=== PATIENT | female | born 1945 | race Caucasian/White ===

== ENCOUNTER → 2023-03-11 08:46 | Outpatient (CLI) | payer MEDICARE, OTHER, SELFPAY ==
[2023-03-11 11:03] LABS: Add Manual Diff / Slide Review NO; Basophils Absolute Auto 100 /uL (0-100); Eosinophils Absolute Auto 200 /uL (0-450); Eosinophils Percent Auto 3.6 % (2-4); Hematocrit 33.9 % (36-46); Hemoglobin 11.1 g/dL (12.0-16.0); Lymphocytes Absolute Auto 1400 /uL (1100-4500); Lymphocytes Percent Auto 21.5 % (25-40); Mean Corpuscular HGB Conc 32.7 % (30-36); Mean Corpuscular Hemoglobin 29.8 PG (26-34); Mean Corpuscular Volume 91.3 fL (80-100); Monocytes Absolute Auto 600 /uL (0-900); Monocytes Percent Auto 9.2 % (3-14); Neutrophils Absolute Auto 4200 /uL (1500-7000); Neutrophils Percent Auto 64.7 % (50-75); Platelet Count 338 X10^3/uL (150-400); Red Blood Cell Count 3.71 X10^6/uL (4.0-5.2); Red Cell Distribution Width 14.5 % (11.6-14.8); White Blood Cell Count 6.6 X10^3/uL (4.5-11.0)
[2023-03-11 11:11] LABS: INR 1.8 (0.9-1.3); Prothrombin Time 20.4 SECONDS (10.1-12.7)
[2023-03-11 11:13] LABS: PTT Partial Thromboplastin Tim 36 SECONDS (26-36)
[2023-03-11 11:20] LABS: Hemoglobin A1C% w Est Avg Glu 5.8 % (4.0-6.0)
[2023-03-11 11:24] LABS: BUN Creatinine Ratio 13.8 (6-22); Blood Urea Nitrogen 12 mg/dL (7-17); Calcium 10.1 mg/dL (8.4-10.2); Carbon Dioxide 25 mmol/L (22-32); Chloride 104 mmol/L (98-107); Estimated Glomerular Filt Rate > 60 mL/min (>60); Glucose 109 mg/dL (80-110); HEMOLYSIS < 15 (0-50); Sodium 140 mmol/L (137-145)
== END ==
PROVIDERS: Family Provider Family Medicine; PCP Family Medicine; Referring Provider Orthopaedic Surgery; Visit Provider Orthopaedic Surgery
DX: Z01.818 Encounter for other preprocedural examination (principal); Z51.81 Encounter for therapeutic drug level monitoring; R73.9 Hyperglycemia, unspecified; Z01.812 Encounter for preprocedural laboratory examination; N39.0 Urinary tract infection, site not specified
CPT/HCPCS: 36415; 80048; 83036; 85025; 85610; 85730; 93005; 93010

== ENCOUNTER 2023-08-17 08:36 | Day surgery (SDC) | payer MEDICARE, OTHER, SELFPAY ==
[2023-08-04 13:28] VITALS: BMI 36.8
[2023-08-16 16:02] VITALS: O2SAT 97
[2023-08-17] VITALS (16 sets, daily range): BP systolic 145–161; BP diastolic 63–93; PULSE 64–89; RESP 12–18; TEMP 35.7–37.2; O2SAT 92–99; BMI 36.8
--- NOTE | 2023-08-17 08:49 | DI.RAD.S_ITS ---
PROCEDURE: XR KNEE LT 1TO2V INDICATIONS: Left TKA TECHNIQUE: 2 view(s) of the knee acquired. COMPARISON: None. FINDINGS: Bones: Patient is status post knee joint arthroplasty. Hardware components are in expected positions. Visualized bony structures are intact. Soft tissues: Overlying postoperative changes are noted. IMPRESSION: Expected post-operative appearance of a knee arthroplasty. Dictated by: Magalie Gallardo MD, PhD on 08/17/2023 at 14:11 Approved by: Magalie Gallardo MD, PhD on 08/17/2023 at 14:11
[2023-08-17] MEDS: ACETAMINOPHEN 325 MG TABLET 975 MG PO (09:13)
[2023-08-17] MEDS: LACTATED RINGERS 1,000 ML 42 ML IV ×2 (09:53→12:24)
--- NOTE | 2023-08-17 09:56 | PM.PREOP ---
Pre-operative Note Interval Note History & Physical reviewed/Exam performed by Physician: Yes Changes to H&P: No
--- NOTE | 2023-08-17 09:57 | P.OP_ITS ---
Operative Date/Time/Diagnoses Date of procedure: 08/17/23 Time of procedure: 10:00 Pre-op diagnosis: Left knee OA Post-op diagnosis: same Procedure & Clinicians Procedure: Left total knee arthroplasty Same procedure as scheduled: Yes Indications: The patient has had progressively worsening left knee pain with radiographic changes consistent with arthritis. Non-operative management has failed and the patient has requested total knee replacement. The risks, benefits and alternatives to surgery were discussed with the patient prior to proceeding. Risks discussed included, but were not limited to, failure to relieve pain, stiffness, infection, nerve damage, deep venous thrombosis, pulmonary embolism, stroke, coma, heart attack, permanent paralysis and , as well as the potential need for eventual revision of the prosthetic. Surgeon: Tracy Flynn Wildland Fire Fighter Specialist: Otilio Dubose Anesthesia Type: General and Peripheral nerve block Operative Notes Findings: Severe left knee OA, adequate stability Closure Type: primary Specimen(s): none sent Prosthetic devices, grafts, tissues, transplants, or devices: [employer] [facility] BCS 2 size 5 femur, size 4 tibia, +9 poly, 35 x 7-1/2 mm patella Estimated Blood Loss (mL): 250 Blood products transfused: none Tourniquet time (min): 97 Procedure in detail: The patient was seen in the pre-operative area, where the patient identified the left knee as the operative site and this was marked with my initials. The patient received pre-operative antibiotics, and was taken to the operating room and placed on the operative table in the supine position. After satisfactory anesthesia, a heel cementer machine out was performed. The left leg was encircled with a tourniquet about the proximal thigh, and the leg was prepared from the toes to the tourniquet with ChloroPrep in the usual fashion and draped through sterile drapes. The leg was elevated and exsanguinated with Eschmark bandage and the tourniquet inflated to [250] mmHg pressure. A PA was used during the procedure and was essential for intraoperative retraction and safe implantation of the components. The knee was approached through an approximately 18 cm incision centered over the patella and carried into the knee through a medial parapatellar arthrotomy. Portion of the medial and lateral meniscus was resected. Soft tissue was carefully mobilized around the patella the patella was measured with a caliper. Bone was resected from the patella and the patellar height was reconstituted with up an appropriate sized patellar component. For a cover was then placed on the patella. A small amount of additional medial and lateral meniscus was resected. Cori pins were placed in the femur and the tibial guide was attached and pinned for navigation. The knee was meticulously mapped and placed through a range of motion and stressed and non stressed curves were taken. A plan was developed to optimize range of motion and stability and alignment. The robotic assisted bur was used to remove the distal femur for the distal femoral cut. It looked like an appropriate distal femoral cut and the cut was made without difficulty. The rotation was assessed and the appropriate size femoral guide was placed on the distal femur and finishing cuts were made. There was no evidence of notching. The anterior, posterior and chamfer cuts were then made. The posterior osteophytes and soft tissues were then removed. The posterior capsule was injected with part of a mixture of 60 ml 0.25% Marcaine mixed with 266 mg Exparel for post operative pain control. The remainder of this mixture was injected into the capsule and subcutaneous tissues during cement curing. The tibia guide was meticulously navigated in order to optimize the tibial cut. The proximal tibial cut was made. It appeared to be an adequate cut. The patient was placed in extension residual medial and lateral meniscus as well as any residual bone was carefully resected. [No] additional tibia was resected. Hemostasis was achieved especially posteriorly. Additional local was injected into the posterior capsule. The extension gap was assessed. The femoral component was trial was placed and the notch was finished. Trial tibial and femoral components were then placed and the knee placed through a range of motion. Range of motion was [0-130], with good stability throughout the range. The trials were then removed, and the tibia was finished. The bone was prepared with pulsatile lavage, and dried with a sponge. Cement was applied and the final prosthetics placed. Excess cement was removed during and after cement curing. A brief Betadine soak was performed. After confirming there was no extruded cement posteriorly, the final tibial insert was placed. The knee was copiously irrigated and the tourniquet deflated. Hemostasis was obtained with the Bovie cautery. The capsule was closed with interrupted # 1 suture. The subcutaneous layer was closed with barbed sutures, and the skin with a running 3-0 V-Lock suture and skin loreta. A caleb dressing was applied and the patient was taken to recovery having tolerated the procedure well. Complications: none Post-operative Condition: stable Disposition: Acute Care Plan for aftercare: The patient will be maintained on a standard total knee replacement protocol with weight bearing as tolerated. The patient will receive Coumadin and sequential compression devices for DVT prophylaxis. The patient will be discharged home when safe for the home environment.
[2023-08-17] MEDS: VANCOMYCIN 1,000 MG/200 ML PIGGYBACK 200 MG IV (10:06)
[2023-08-17] MEDS: CEFAZOLIN 2 GM/100 ML PREMIX 100 ML IV ×2 (10:53→18:43)
[2023-08-17] MEDS: TRANEXAMIC ACID 1,000 MG VIAL 2000 MG INJ ×2 (11:00→12:45)
--- NOTE | 2023-08-17 11:10 | SUR.OPER ---
Supine on padded OR bed. Pillow under head, arms secured on padded armboards <90 degree abduction. Safety belt across torso. Non-operative leg secured with tape over blanket over lower leg. Operative leg secured in positioner. Foam padded brace at thigh of operative leg.
[2023-08-17] MEDS: BUPIVACAINE 0.25% (PF) 60 ML, EPINEPHrine 0.3 MG INJ (11:46)
[2023-08-17] MEDS: BUPIVACAINE LIPOSOME 266 MG/20 ML VIAL INJ (11:47)
[2023-08-17] MEDS: ONDANSETRON 4 MG/2 ML INJ IV ×2 (14:19→20:17)
--- NOTE | 2023-08-17 14:49 | PC.NURSE ---
admit/post op pt to AC from PACU. VSS. Pt alert and oriented. HAYLIE dressing to L knee CDI with kaylan wrap. no transfer orders. This RN called to PACU; PATIENT EXPERIENCE COORDINATOR Capri seals will notify MD or BASE LOADER about the same as they are in another surgical case.
[2023-08-17] MEDS: WARFARIN 1 MG TABLET PO (18:42)
[2023-08-17] MEDS: TRAMADOL 50 MG TABLET PO (18:44)
[2023-08-17] MEDS: LACTATED RINGERS 1,000 ML 100 ML IV (20:49)
[2023-08-17] MEDS: DOCUSATE 100 MG CAPSULE PO (22:02)
[2023-08-17] MEDS: diphenhydrAMINE 25 MG TABLET PO (22:03)
[2023-08-17] MEDS: METOPROLOL IR 50 MG TABLET 75 MG PO (22:03)
[2023-08-18] VITALS: BP 149/60; PULSE 67; RESP 19; TEMP 35.8; O2SAT 97
[2023-08-18] MEDS: HYDROCODONE/ACET 5/325 TABLET 1 TAB PO ×3 (00:39→11:40)
[2023-08-18] MEDS: CEFAZOLIN 2 GM/100 ML PREMIX 100 ML IV (02:48)
[2023-08-18 04:00] VITALS: BP 142/68; PULSE 66; RESP 17; TEMP 36.1; O2SAT 96
[2023-08-18 05:33] LABS: Hematocrit 36.8 % (36-46); Hemoglobin 12.3 g/dL (12.0-16.0)
--- NOTE | 2023-08-18 07:06 | PM.DS.1 ---
History of Present Illness History of Present Illness Date Patient Seen: 08/18/23 Time Patient Seen: 07:06 Chief complaint: OPB Narrative: Operative Date/Time/Diagnoses Date of procedure: 08/17/23 Time of procedure: 10:00 Pre-op diagnosis: Left knee OA Post-op diagnosis: same Procedure & Clinicians Procedure: Left total knee arthroplasty Same procedure as scheduled: Yes Indications: The patient has had progressively worsening left knee pain with radiographic changes consistent with arthritis. Non-operative management has failed and the patient has requested total knee replacement. The risks, benefits and alternatives to surgery were discussed with the patient prior to proceeding. Risks discussed included, but were not limited to, failure to relieve pain, stiffness, infection, nerve damage, deep venous thrombosis, pulmonary embolism, stroke, coma, heart attack, permanent paralysis and , as well as the potential need for eventual revision of the prosthetic. Surgeon: Tracy Flynn Dye Colorist Formulator: Otilio Dubose Anesthesia Type: General and Peripheral nerve block Operative Notes Findings: Severe left knee OA, adequate stability Closure Type: primary Specimen(s): none sent Prosthetic devices, grafts, tissues, transplants, or devices: [employer] [facility] BCS 2 size 5 femur, size 4 tibia, +9 poly, 35 x 7-1/2 mm patella Estimated Blood Loss (mL): 250 Blood products transfused: none Tourniquet time (min): 97 Discharge Providers Provider Discharge Date: 08/18/23 Primary care physician: Purvi Yao MD Consults: 08/04/23 14:43 Consult to Anesthesiology Routine Comment: Consulting Provider: Anesthesiologist Reason for consultation: PAC courtesy re: Comorbidities, new dx of Pulm HTN 08/17/23 08:49 Consult to Anesthesiology Routine Comment: Consulting Provider: Anesthesiologist Reason for consultation: Regional block for post operative pain control 08/17/23 16:20 Consult to Discharge Planning Routine Comment: Consult to Occupational Therapy Evaluate & Treat Comment: Physician Instructions: Evaluate and treat Consult to Physical Therapy Evaluate & Treat Comment: Physician Instructions: postop TKA protocol Discharge provider: Dora Jimenes PA-C Summary Hospital Course Discharge Diagnosis: Left knee osteoarthritis, s/p left total knee arthroplasty Hospital Course: Ms Almonte's hospital course was unremarkable. On the morning of POD# 1, she was feeling well and wanted to go home if cleared by PT. She had been OOB to urinate without difficulty. She had not yet eaten but denied nausea. She is on warfarin for a fib, which was restarted last night. Pt states her PCP rxd a Lovenox bridge. Exam Vital Signs (past 8 hours): - 08/18/23 00:00 08/18/23 04:00 Temperature 96.5 F L 96.9 F L Pulse Rate 67 66 Respiratory Rate 19 17 Blood Pressure 149/60 H 142/68 H Pulse Oximetry 97 96 Oxygen Flow Rate 0 0 Oxygen Delivery Method Room Air Oxygen Flow Rate 0 Narrative Exam Narrative: 4/5 strength in hip flexors, quadriceps, hamstrings; 5/5 DF, PF, EHL on left. Sensation to light touch intact throughout LLE. Calf soft, compressible, nontender. HAYLIE dressing functioning; ZAYNAB CDI. Objective Labs 08/18/23 05:04 Labs: Laboratory Results - last 24 hr 08/18/23 05:04 Hgb 12.3 Hct 36.8 PFSH Medical History (Updated 08/04/23 @ 14:31 by Sallie Meier RN) History of COVID-19 (~2020) Anemia Easy bruisability Osteoarthritis Hx of ectopic (1970) Weight loss Diverticulitis GERD (gastroesophageal reflux disease) HTN (hypertension) HLD (hyperlipidemia) Atrial fibrillation Pulmonary hypertension SANTIAGO on CPAP Surgical History (Updated 08/18/23 @ 07:21 by Dora Jimenes PA-C) Hx of arthroscopy of right knee (2007) History of total right knee replacement (2012) Hx of tonsillectomy Hx of laminectomy (1982) Hx of cholecystectomy (1988) Hx of appendectomy (1963) Hx of bilateral cataract extraction Social History household members: spouse Smoking Status: Never smoker alcohol intake: current Discharge Assessment & Plan Assessment and Plan Assessment: Left knee osteoarthritis, s/p left total knee arthroplasty Plan of Treatment: Discharge home, warfarin as per preop for VTE prophylaxis. Multimodal pain control will include hydrocodone as oxycodone and tramadol cause nausea. Discharge Plan Discharge Plan Patient Disposition: Home Provider Discharge Comment: Restart Lovenox (enoxaparin) injections as prescribed by Dr Yao on the evening of 08/19/2023. Discharge orders & Medications Discharge Orders: Discharge (Order); Ordered 08/18/23 Ordered By: Dora Jimenes Prescriptions: New hydrocodone-acetaminophen 5-325 mg Tablet 1 tab PO Q4-6H PRN (Reason: Pain, Moderate (4-6)) Qty: 40 0RF docusate sodium 100 mg Capsule 100 mg PO BID PRN (Reason: constipation) Qty: 60 1RF Continued acetaminophen 500 mg Tablet 1,000 mg PO BID metoprolol tartrate 50 mg Tablet 75 mg PO BID digoxin 125 mcg (0.125 mg) Tablet 125 mcg PO DAILY furosemide 20 mg Tablet 20 mg PO DAILY warfarin [Jantoven] 1 mg Tablet 1 mg PO DAILY diphenhydramine-acetaminophen [Acetaminophen PM] 25-500 mg Tablet 1 tab PO BEDTIME Follow up/Referrals: Purvi Yao MD [Primary Care Provider] - Tracy Flynn MD [Physician] - 08/27/23 2:00 pm (Follow up at [facility] office in [place] Diet/Activity/Treatments Diet: Diet as Tolerated Activity: Weightbearing as tolerated. Walk frequently! Cold/Heat Therapy: Ice to knee as needed for pain. Skin/Wound/Dressing Care Report to your healthcare provider any signs of infection, such as:: chills, fever, night sweats, unusual drainage and unusual redness Dressing: May remove ZAYNAB wrap and shower on 08/20/2023. Leave dressing in place until follow up in office. In 5-7 days, battery light will start blinking red, at which point you can cut off the battery pack and dispose of it. No bathing or otherwise soaking incision. Call the office if the dressing becomes saturated inside. Visit Report/Discharge Packet Instructions: DI for Knee Replacement, DI for Prescription Opioid Use Stand Alone Forms: Patient Portal/API, Surgery Discharge Discharge Data Primary Care Provider: Purvi Yao Attending Provider: Tracy Flynn Quality VTE Deep Vein Thrombosis/Pulmonary Embolism Present on Admission: No
[2023-08-18] MEDS: ACETAMINOPHEN 325 MG TABLET 650 MG PO (07:32)
[2023-08-18 08:52] VITALS: BP 138/62; PULSE 70
[2023-08-18] MEDS: polyethylene glycoL 3350 17 GM POWD.PACK PO (08:52)
[2023-08-18] MEDS: METOPROLOL IR 50 MG TABLET 75 MG PO (08:52)
[2023-08-18] MEDS: FUROSEMIDE 20 MG TABLET PO (08:52)
[2023-08-18] MEDS: DIGOXIN 0.125 MG TABLET PO (08:52)
[2023-08-18] MEDS: DOCUSATE 100 MG CAPSULE PO (08:53)
[2023-08-18] MEDS: WARFARIN 1 MG TABLET PO (08:53)
--- NOTE | 2023-08-18 09:25 | OT.IP.EVAL ---
Current Diagnoses Unilateral primary osteoarthritis, left knee (08/17/23) Presence of unspecified artificial knee joint (08/17/23) Surgery Performed Operation Date: 08/17/23 10:45 Actual Procedures p Total Knee Arthroplasty - Robot(Left) - Tracy Flynn MD Past Medical History (Last Updated 08/04/23 @ 14:31 by Sallie Meier, RN) Anemia Atrial fibrillation Diverticulitis Easy bruisability GERD (gastroesophageal reflux disease) History of COVID-19 (~2020) HLD (hyperlipidemia) HTN (hypertension) Hx of ectopic (1970) SANTIAGO on CPAP Osteoarthritis Pulmonary hypertension Weight loss Surgical History (Last Updated 08/04/23 @ 14:23 by Sallie Meier, RN) History of total right knee replacement (2012) Hx of appendectomy (1963) Hx of arthroscopy of right knee (2007) Hx of bilateral cataract extraction Hx of cholecystectomy (1988) Hx of laminectomy (1982) Hx of tonsillectomy Occupational Therapy Inpatient Evaluation/Re-Eval M1 PT/OT-IP Prior Functional Status Start: 08/18/23 09:28 Freq: NEEDED Status: Active Protocol: Document 08/18/23 09:28 [facility] (Rec: 08/18/23 09:41 [facility] [id number]) Medical Review Prior Functional Status Communication Independent Mobility and Gait Use of SPC when needed. Activities of Daily Living and IADL's I with ADL and IADL needs. Social History Household Members spouse Living Arrangements Apartment/Condo Number of Floors (Floors) One Floor Number of Stairs To Enter/Railing? NO steps to enter the condo. Home Environment High Toilet,Walk in Shower Home Equipment Front Wheel Walker,Straight Cane,Raised Toilet Seat Without Armrests,Hand Held Shower,Seedling Sorter,Sock Aid,Grab Bars Near Toilet,Grab Bars In Shower Additional Social History Comment Pt uses a step to help get into bed. M2 OT-IP Current Condition Start: 08/18/23 09:28 Freq: Status: Active Protocol: Document 08/18/23 09:28 [facility] (Rec: 08/18/23 09:41 [facility] [id number]) Occupational Therapy Current Condition Current Condition Evaluation Date 08/18/23 Treatment Diagnosis S/P L TKA Diagnosis Onset Date 08/17/23 Weight Bearing Status Weight Bearing Status Weight Bear as Tolerated M3 OT- IP Subjective and Pain Start: 08/18/23 09:28 Freq: Status: Active Protocol: Document 08/18/23 09:28 [facility] (Rec: 08/18/23 09:41 [facility] [id number]) OT- Subjective Occupational Therapy Visit Type Type Initial Evaluation Visit Start Time 08:40 Visit Stop Time 09:25 Occupational Therapy Visit Comments Patient Comments Pt agreed to get up and get dressed and use the bathroom. Patient/Caregiver Goals To go home. OT Pain Assessment Pain When Pain Assessed At Rest Pain Present Pain Present Pain Reported Location left knee Intensity 5 Scale Used Numeric (0 - 10) M4 OT- IP ADL's Start: 08/18/23 09:28 Freq: Status: Active Protocol: Document 08/18/23 09:28 [facility] (Rec: 08/18/23 09:41 [facility] [id number]) OT [id number]-Mslsuvi General Evaluation Self-Feeding Ability Independent OT ADL-Grooming General Evaluation Grooming Ability Independent Comments OT Grooming Comments while seated OT ADL-Oral Care Comments Oral Care Comments Not performed. OT ADL-Dressing General Eval Upper Body Dressing Ability Independent Lower Body Dressing Ability Moderate Assistance Areas Needing Assistance Socks,Shoes Comments OT Dressing Comments Pt able to reach down to be able to doff her socks, able to use sock aid to vidya socks and needing assist to put on her shoes and tie them as her feet are swollen. Educated to vidya her LLE first and take out last. OT ADL-Toileting General Evaluation Toileting Ability Standby Assistance Comments OT Toileting Comments Educated pt to be mindful of her knee positioning during ADL needs. OT ADL-Bathing Comments OT Bathing Comments Pt states her to assist her at home. M5 OT- IP IADL's Start: 08/18/23 09:28 Freq: Status: Active Protocol: Document 08/18/23 09:28 [facility] (Rec: 08/18/23 09:41 [facility] [id number]) OT-Instrumental Activities of Daily Living Deficits IADL Deficits Identified Deficits Home Safety Awareness Awareness of Need for Assistance at Home Good Awareness Ability to Problem Solve Emergency Able to Problem Solve Situations Medication Management Medication Management No Deficits Identified Money Management Money Management No Deficits Identified Meal Preparation Meal Preparation Caregiver Provides Assist Equipment Operation Instructor Equipment Operation Instructor Caregiver Provides Assist M6 OT- IP Functional Cognition Start: 08/18/23 09:28 Freq: Status: Active Protocol: Document 08/18/23 09:28 [facility] (Rec: 08/18/23 09:41 [facility] [id number]) Cognitive Factors Limiting Selfcare Function Cognitive Ability Level of Alertness Alert Patient Orientation Name,Age,Birthday,Month,Date, Year,Day of Week,Place, Situation Attention Span Ability Capable of Focused Attention, Capable of Sustained Attention Ability to Follow Commands Able to Follow One Step Commands Cognitive Comments Cognitive Assessment Comments Pt able to follow commands for ADL and mobility needs. Pt needing vc for FWW safety and to be sure to use her hands to push up from surfaces when coming to stand. OT- Vision and Hearing OT- Hearing Assessment OT- Hearing Assessment WFL OT- Vision Assessment Visual Acuity Glasses All The Time Visual Attentiveness WFL Occular Pursuits WFL M7 OT- IP Mobility and Balance Start: 08/18/23 09:28 Freq: Status: Active Protocol: Document 08/18/23 09:28 [facility] (Rec: 08/18/23 09:41 [facility] [id number]) OT- Bed Mobility Assessment Rolling Level of Assistance Standby Assistance Supine to Sit Supine to Sit Assist Standby Assistance OT-Transfer Assessment Sit to and From Stand Sit to and from Stand Contact Guard Assistance Transfers Transfer Ability Contact Guard Assistance, Minimal Assistance Technique Transfer Destination Bed,Chair,Toilet Transfer Technique Stand Step Pivot Devices Transfer Assistive Devices Gait Belt,Front Wheeled Walker Comments Mobility Comments Pt CGA to stand and from lower surfaces JAUN to the FWW. Once on her feet SBA. Able to practice use of step to step down from a high bed that she has a home. OT- Balance Assessment Sitting Balance and Reactions Static Sitting Balance Ability Normal Dynamic Sitting Balance Ability Good Standing Balance and Reactions Static Standing Balance Ability Good Dynamic Standing Balance Ability Fair M8 OT- IP Objective Assessments Start: 08/18/23 09:28 Freq: Status: Active Protocol: Document 08/18/23 09:28 [facility] (Rec: 08/18/23 09:41 [facility] [id number]) OT Gross Range of Motion Upper Extremity Range of Motion Assessment Within Functional Limits OT Strength Upper Extremity Strength Assessment Within Functional Limits M9 OT- IP Assessment and Plan Start: 08/18/23 09:28 Freq: Status: Active Protocol: Document 08/18/23 09:28 [facility] (Rec: 08/18/23 09:41 [facility] [id number]) OT Summary Assessment and Plan Potential Rehabilitation Potential Excellent Analytic Complexity at Evaluation Low Summary OT Impairments Pain,Strength,Balance, Functional Mobility,Dressing, Toileting,Bathing,Toilet Transfers Progress Towards Goals Progressing Toward Goals Assessment Summary Pt low complexity and main barriers are pain and having a step to get into the bed. Pt doing well and able to use the toilet and get dressed on OT eval. Pt to go home with her when medically stable and go to outptPT. Goals Grooming Goal Independent Dressing Goal Independent Toileting Goal Independent Toilet Transfer Goal Independent Shower Transfer Goal Standby Assistance Days to Meet Goals 2 Frequency of Treatment Frequency Of Treatment Once a Day Treatment Plan OT Treatment Plan ADL Training,Functional Mobility,Patient/Family Education,Discharge Planning Discharge Recommendations OT Discharge Recommendations Home with Assistance, Outpatient PT Transportation Needs at Discharge Private Vehicle
[2023-08-18 09:28] VITALS: BP 149/64; PULSE 65; RESP 18; TEMP 36.7; O2SAT 95
[2023-08-18 09:30] VITALS: BP 178/62; PULSE 80; RESP 16; TEMP 36.2; O2SAT 96
--- NOTE | 2023-08-18 10:15 | PT.IIE ---
Current Diagnoses Unilateral primary osteoarthritis, left knee (08/17/23) Presence of unspecified artificial knee joint (08/17/23) Surgery Performed Operation Date: 08/17/23 10:45 Actual Procedures p Total Knee Arthroplasty - Robot(Left) - Tracy Flynn MD Surgical History (Last Updated 08/04/23 @ 14:23 by Sallie Meier, RN) History of total right knee replacement (2012) Hx of appendectomy (1963) Hx of arthroscopy of right knee (2007) Hx of bilateral cataract extraction Hx of cholecystectomy (1988) Hx of laminectomy (1982) Hx of tonsillectomy Medical History (Last Updated 08/04/23 @ 14:31 by Sallie Meier, RN) Anemia Atrial fibrillation Diverticulitis Easy bruisability GERD (gastroesophageal reflux disease) History of COVID-19 (~2020) HLD (hyperlipidemia) HTN (hypertension) Hx of ectopic (1970) [place] on CPAP Osteoarthritis Pulmonary hypertension Weight loss Physical Therapy Inpatient Evaluation/Re-Eval M1 PT/OT-IP Prior Functional Status Start: 08/18/23 09:28 Freq: NEEDED Status: Discharge Protocol: Document 08/18/23 09:28 [facility] (Rec: 08/18/23 09:41 [facility] [id number]) Medical Review Prior Functional Status Communication Independent Mobility and Gait Use of SPC when needed. Activities of Daily Living and IADL's I with ADL and IADL needs. Social History Household Members spouse Living Arrangements Apartment/Condo Number of Floors (Floors) One Floor Number of Stairs To Enter/Railing? NO steps to enter the condo. Home Environment High Toilet,Walk in Shower Home Equipment Front Wheel Walker,Straight Cane,Raised Toilet Seat Without Armrests,Hand Held Shower,Hvac R Instructor,Sock Aid,Grab Bars Near Toilet,Grab Bars In Shower Additional Social History Comment Pt uses a step to help get into bed. M1 PT/OT-IP Prior Functional Status Start: 08/18/23 13:27 Freq: NEEDED Status: Active Protocol: Document 08/18/23 10:15 AB (Rec: 08/18/23 13:38 AB [id number]) Medical Review Prior Functional Status Medical History Reviewed Yes Communication able to make needs known Mobility and Gait pt stated that she was modified independent with all mobilities and ambulation without AD indoors but uses a SPC for outdoor mobility; stated that spouse occasionally assists her depending on knee pain Activities of Daily Living and IADL's per OT note: I with ADL and IADL needs. Social History Household Members spouse Living Arrangements Apartment/Condo Number of Floors (Floors) One Floor Number of Stairs To Enter/Railing? no steps to enter Home Environment Standard Height Toilet,Walk in Shower,Built-In Shower Seat Home Equipment Front Wheel Walker,Straight Cane,Raised Toilet Seat Without Armrests,Hand Held Shower,Grab Bars Near Toilet, Grab Bars In Shower M2 PT-IP Current Condition Start: 08/18/23 13:27 Freq: NEEDED Status: Active Protocol: Document 08/18/23 10:15 AB (Rec: 08/18/23 13:38 AB [id number]) Physical Therapy Current Condition Current Condition Evaluation Date 08/18/23 Treatment Diagnosis s/p L TKA; difficulty in walking Onset Date 08/17/23 M3 PT-IP Subjective Start: 08/18/23 13:27 Freq: NEEDED Status: Active Protocol: Document 08/18/23 10:15 AB (Rec: 08/18/23 13:38 AB [id number]) Subjective Physical Therapy Visit Type Type Initial Evaluation Visit Start Time 10:15 Visit Stop Time 11:40 Notes pt seen for split visits: 1015 to 1050 am and 1130 to 1140am Number of OFFICE ADMINISTRATION Visits 0 Physical Therapy Visit Comments Patient Comments agreeable to do PT Therapy Pain Assessment Pain When Pain Assessed At Rest Pain Present Pain Present Pain Reported Location left knee Intensity 5 Scale Used Numeric (0 - 10) Pain Management Techniques Apply Cold,Distraction, Modification of Treatment,Re- positioning,Timing of Activity with Medications M4 PT-IP Mobility and Gait Start: 08/18/23 13:27 Freq: NEEDED Status: Active Protocol: Document 08/18/23 10:15 AB (Rec: 08/18/23 13:38 AB [id number]) PT-Bed Mobility Assessment Supine to Sit Supine to Sit Standby Assistance Sit to Supine Sit to Supine Standby Assistance PT-Transfer Assessment Sit to and From Stand Sit to and from Stand Contact Guard Assistance,1 Person Assistance,Use of Upper Extremities Equipment Transfer Assistive Device Gait Belt,Front Wheeled Walker Orthotic/Prosthetic Devices or Brace: No Transfers Transfer Destination Bed,Chair Transfer Technique ambulated Transfer Ability Level of Assist Contact Guard Assistance,1 Person Assistance,Use of Upper Extremities Comments Mobility Comments pt sitting on the chair and agreeable to do PT. obtained PLOF and home set up from pt. pt completed sit to stand from chair CGA and ambulated in room ~ 40 ft using FWW initially requiring CGA but only SBA towards end of ambulation. cued pt for posture, steadiness and safety . pt sat on EOB and completed sit<>supine SBA. pt completed sit to stand from EOB CGA and step transfer to chair SBA using FWW. educated pt requiring slowing down and steadiness during ambulation. also educated for sit to stand techniques. pt agreed to ambulate again. completed ambulation SBA using fWW ~ 35 ft. pt sat back on chair. positioned pt on the chair. call light and table placed within reach. pt wanting caregiver training for spouse. informed nurse to let PT know when spouse arrives. per nurse, spouse arrived. checked on pt pt and spouse in room. caregiver training conducted. educated spouse on use of safety belt and how to assist pt. spouse was able to put safety belt on and assisted pt with sit<>stand and ambulation in room using FWW. pt sat back on chair. call light within reach. pt and spouse without further concerns. Gait Assessment Gait Gait Assistance Required: Standby Assistance,Contact Guard Assist Distance (Feet) 40 Able to Maintain Weight Bearing Status Yes During Gait Assistive Devices Assistive Device Gait Belt,Front Wheeled Walker Orthotic/Prosthetic Devices or Brace: No Gait Deviations General Gait Pattern Antalgic Factors Limiting Gait Function Factors Limiting Gait Function Decreased Activity Tolerance, Decreased Strength,Limited Range of Motion,Pain,Poor Balance,Poor Safety Awareness PT-Balance Assessment Sitting Balance and Reactions Static Sitting Balance Ability Normal Dynamic Sitting Balance Ability Good Standing Balance and Reactions Static Standing Balance Ability Fair Dynamic Standing Balance Ability Fair Device Used FWW M5 PT-IP Objective Assessments Start: 08/18/23 13:27 Freq: NEEDED Status: Active Protocol: Document 08/18/23 10:15 AB (Rec: 08/18/23 13:38 AB [id number]) Orientation Orientation/Cognition Level of Alertness Alert Orientation Name,Place,Situation Language Function Ability No Deficits Noted Safety Awareness Decreased Safety Awareness Memory Description No Deficits Noted Gross Range of Motion Lower Extremity ROM Assessment Left Impaired Impairments L knee flexion: ~ 70 deg L knee extension: ~ 15 deg less to 0 Strength Lower Extremity Strength Assessment Left Impaired Hip 4-/5 Knee 3+/5 Sensation Assessment Sensation Gross Sensation WNL Muscle Tone Muscle Tone WNL Yes M6 PT-IP Treatment Start: 08/18/23 13:27 Freq: NEEDED Status: Active Protocol: Document 08/18/23 10:15 AB (Rec: 08/18/23 13:38 AB [id number]) Physical Therapy Treatment Education Education Provided Precautions,Weight Bearing Status,Post-Op Packet,Safety M7 PT-IP Assessment and Plan Start: 08/18/23 13:27 Freq: NEEDED Status: Active Protocol: Document 08/18/23 10:15 AB (Rec: 08/18/23 13:38 AB [id number]) PT Summary Assessment and Plan Potential Rehabilitation Potential Good Status of Condition at Evaluation Stable Summary Impairments Pain,ROM,Strength,Balance, Coordination,Sensation,Tone, Cognition,Bed Mobility, Transfers,Gait,Activity Tolerance Assessment Summary pt stuart 78 y/o F s/p L TKA POD 1. pt is WBAT on LLE. pt requiring SBA to CGA with mobility using FWW. caregiver training conducted and spouse will be able to assist pt . pt has outpt PT set up. pt may go home when medically stable . Goals Bed Mobility Goal Independent Transfer Goal Independent,Front Wheeled Walker Gait Goal Independent,Front Wheel Walker Gait Distance 200 Days to Meet Goals 5 Frequency of Treatment Frequency Of Treatment Twice a Day Treatment Plan Physical Therapy Treatment Plan Bed Mobility Training,Transfer Training,Gait Training, Therapeutic Exercise,Balance Retraining,Post Op Education, Discharge Planning,Hot or Cold Pack,Neuromuscular Re-ed, Coordination Retraining,Manual Therapy Weight Bearing Status Weight Bearing Status Weight Bear as Tolerated Allowed Weight Bearing Amount (enter % LLE WBAT or #) (%) Recommendations To Nursing Amount of Assist Needed 1 Person Assist Discharge Recommendations PT Discharge Recommendations Home with Assistance, Outpatient PT Transportation Needs at Discharge Private Vehicle
--- NOTE | 2023-08-18 11:58 | CM.DANOTE ---
Patient is a 78 yo female who was admitted [facility] [place]. Pt has [employer] and [employer] for insurance and her PCP is Purvi Yao. EMR was reviewed. Per Ortho, pt tolerated procedure well and worked with therapies and medically stable to discharge home today with outpt f/u and no identified barriers to discharge. Per PT/OT, pt and spouse participated in CG training and recommending safe d/c home with assist and outpt PT. SW met bedside with pt and spouse and explained role and they confirm they live in an apartment in [facility] and both are active and independent at baseline and pt typically does not use DME for ambulation but has started using her walker for longer distances leading up to knee surgery. Pt's spouse is her DPOA and pt denies any recent HH or SNF stays. Pt and spouse confirm they feel confident with discharge home today and preference is home before lunchtime and spouse confirms he will transport. Pt states she has outpt PT already set up and no further discharge planning needs at this time. RN confirms discharge instructions provided and no concerns. Plan: Patient to discharge home today via spouse POV and outpt f/u for Ortho and PT and no further SW needs at this time. KAREN Aragon Discharge Planning/Care Management CM Discharge Assessment Start: 08/18/23 11:54 Freq: Status: Active Protocol: Document 08/18/23 11:54 BF (Rec: 08/18/23 11:57 [id number]) Discharge Planning Assessment Assigned Teachers' Assistant KAREN Lopez DPOA/Assigned Designee Name spouse Reed Contact Information [phone] Advance Directives? Yes Advance Directives on File No History Provided By Patient,Significant Other, Medical Record Has Patient been admitted in last 30 No days? Prior Living Arrangements Apartment/Condo Household Members spouse Type of transporation used prior to Drives own vehicle admit Independent with ADL's Yes Is patient alert and oriented? Yes Caregiver for Another No Community Services used prior to Physical Therapy admission: DME Already Rented / Owned Elevated Toilet Seat,FWW / Walker Patient/Family Preference OP PT Therapy Barriers to Discharge No Discharge Plan Home Community Services Physical Therapy Transportation Arrangement spouse bedside and will transport Referrals Initiated None needed Whiteboard Updated in Patient Room with Yes name and ext. # of Teachers' Assistant Review Status In Process Please Provide Date Initial DC 08/18/23 Assessment Was Performed Next Review Type Continued Stay Review Pre-Anesthesia Assessment Start: 08/04/23 13:28 Freq: Status: Active Protocol: Document 08/04/23 13:28 CAB (Rec: 08/04/23 14:43 CAB [id number]) Pre-Anesthesia Assessment Patient Information Reviewed Via Phone Assessment Assessment Completed With Patient Diagnostic Results BMP/CMP,CBC,EKG Comment Labs/EKG @ [facility] from 03/11/23 Primary Care Provider Purvi Yao Specialist Seen Director Television,Tube Bending Machine Operator, Orthopedist Primary Language Sami Plastic Block Boiler Reliner Required No Height 166.37 cm Weight 102.058 kg Body Mass Index (BMI) 36.8 Hearing Ability Normal Visual Assist Glasses Dentition Type Full- Upper & Lower Barriers to Learning None Other Aids No Hx Anesthesia Reactions No: I heard sawing and hammering during my right knee surgery Hx Family Anesthesia Reaction No Hx Malignant Hyperthermia No Hx Blood Transfusions Yes: s/p ectopic Hx Blood Transfusion Reaction No Anesthesia Review Requested Yes: PAC courtesy re: Comorbidities Site Leasing Agent No alcohol intake current Smoking Status Never smoker Substance Use Type does not use Pain Present Pain Reported Musculoskeletal Symptoms Abnormal Gait,Difficulty Walking,Joint Pain History of Falling (Recent or History of Yes ) Comment My balance is off, weak ankles Patient is completely paralyzed or No completely immobile Prosthesis or Orthotic Device Cane Mental Status Oriented to own ability Does patient have INFANTE/SOB No Hx Sleep Apnea Yes CPAP/BIPAP use prescribed and used routinely Will Bring CPAP/BIPAP DOS Yes Currently Taking a Beta Zachariah Yes: Metoprolol Can You Climb a Flight of Stairs Without Yes SOB Hx Chest Pain No Hx SOB Yes: SOB resolved in Apr w/ diet and exercise, weight loss Hx Syncope or Dizziness No Anti-Coagulant Therapy Yes: Warfarin-Hold 5 days prior per surgeon Has a Director Television Yes: Pre-op visit 04/27/[address] Brown @ [facility] Cardiac Testing Yes: ZIO patch, echo Hx Pacemaker/ICD No Pacemaker Rep Required? No Cardiac Clearance Received Yes Comment Cardiac records scanned and in surgery folder Diet Type At Home Regular Dysphagia No Gastrointestinal Symptoms None Bladder Pattern Frequency,Urgency Urinary Catheter Present No Hx Urinary Self Catheterization No Diabetes No Patient No Lactating No Presence of External or Internal Medical Yes: Right knee, CPAP, arvin eye Devices IOls Received a COVID vaccine? Yes Received all doses? Yes Marital Status Lives With spouse Current Living Arrangements Apartment/Condo Number of Floors (Floors) One Floor Support System Spouse Does the Patient Have Assistance After Yes Surgery Patient Discharge Plan Description Return Home Comment Pt thinks she was told 1 night length of stay per surgeon Feels Safe in Current Environment Yes Been Physically Hurt or Threatened By a No Person in Current Environment Do you have thoughts of harming yourself None or others? Are you currently considering suicide? No Do you have a plan to hurt yourself or No Plan others? Do You Have Any Spiritual Beliefs That No May Affect Your HC Choices? Do You Have Any Cultural Practices That No May Affect Your HC Choices? Comment Confucianism Who Can We Speak to About Patient's Care Family, friends Identifying Code for Release of Patient Declines to issue Information Health Care Proxy/Next of Kin Reed () Health Care Proxy or cell: [phone] Emergency Contact Name Reed () Emergency Contact or cell: [phone] Advance Directives? Yes Advance Directives on File No Power of Tube Sorter Yes Power of Tube Sorter Name Reed () Power of Tube Sorter or cell: PAC Instructions Bring CPAP/BIPAP,Do not shave/ clip surgical site,Durable medical equipment,Medications to take/avoid,Nasal antibiotic ,No ETOH/petroleum product on skin DOS,NPO,Post-op transportation,Pre-surgical wash,Sensory aids,Sturdy shoes /comfortable clothes,Do not bring valuables and remove jewelry
== END 2023-08-18 11:58 | disposition home or self-care (01) ==
LOC: OR 08:54 → AC 12:48
PROVIDERS: Family Provider Family Medicine; PCP Family Medicine; Referring Provider Orthopaedic Surgery; Visit Provider Orthopaedic Surgery
PROC: 0SRD0JZ Replacement of Left Knee Joint with Synthetic Substitute, Open Approach (ICD-10-PCS; CPT 27447; principal; 2023-08-17 10:45)
DX: M17.12 Unilateral primary osteoarthritis, left knee (principal); G89.18 Other acute postprocedural pain
CPT/HCPCS: 27447; 36415; 64450; 73560; 85014; 85018; 97161; 97165; 97530; 97535; C1776; C9290; J0171; J0690; J1100; J1170; J2250; J2405; J2704; J3010